=== PATIENT | female | born 1995 | race Caucasian/White ===

== ENCOUNTER 2021-10-23 13:01 | Emergency (ER) | payer BC, SELFPAY ==
[2021-10-23] VITALS (17 sets, daily range): BP systolic 109–117; BP diastolic 61–67; PULSE 70–87; RESP 16; TEMP 36.6; O2SAT 95–100
--- NOTE | 2021-10-23 13:15 | DI.CT_ITS ---
Exam(s) CT HEAD CERVICAL SPINE WO EXAM: CT HEAD CERVICAL SPINE WO COMPARISON: No exams were available for comparison FINDINGS: CT examination of the cervical spine was performed without contrast administration. There is no evidence of acute cervical spine fracture or dislocation. Intervertebral disc spaces are well maintained. Tracheolaryngeal structures appear intact. No cervical mass or adenopathy. Noncontrast cranial CT was performed. Ventricular system is normal in appearance. No evidence of acute intracranial hemorrhage, mass effect, or midline shift. No calvarial fracture. The orbital and temporal bone structures appear intact. Visualized mastoid air cells and paranasal sinuses appear clear. IMPRESSION: No evidence of acute cervical spine injury. No evidence of acute intracranial injury. RADIATION DOSE DELIVERED: 1,422.56mGy.cm Total DLP 1,422.56mGy.cm Total DLP !Error CTDIvol DATA REPOSITORY: All CT scans at this facility are submitted to the National Radiology Data Registry (NRDR) Dose Index Registry (DIR) with the [employer] ([employer]). RADIATION OPTIMIZATION: All CT scans at this facility use at least one of these dose optimization te chniques: automated exposure control; mA and/or kV adjustment per patient size (includes targeted exa ms where dose is matched to clinical indication); or iterative reconstruction.
--- NOTE | 2021-10-23 13:30 | DI.CT_ITS ---
Exam(s) CT THORACIC SPINE WO EXAM: CT THORACIC SPINE WO CLINICAL HISTORY: trauma mid thorax pain TECHNIQUE: COMPARISON: No exams were available for comparison FINDINGS: CT examination of the thoracic spine was performed utilizing multi slice acquisition and multiplanar reconstruction. The paraspinal soft tissues appear intact. There is no evidence of acute fracture o r dislocation. The intervertebral disc spaces are well maintained. IMPRESSION: No evidence of acute thoracic spine fracture. RADIATION DOSE DELIVERED: 569.18mGy.cm Total DLP !Error CTDIvol RADIATION OPTIMIZATION: All CT scans at this facility use at least one of these dose optimization te chniques: automated exposure control; mA and/or kV adjustment per patient size (includes targeted exa ms where dose is matched to clinical indication); or iterative reconstruction.
[2021-10-23] MEDS: HYDROmorphone 2 MG/ML VIAL 0.5 MG IVP ×2 (13:47→14:26)
[2021-10-23] MEDS: Ondansetron 4 MG/2 ML VIAL IVP (13:47)
--- NOTE | 2021-10-23 14:35 | NUR.NOTE ---
Nursing Note: [place] wallet with her cards, miscellaneous, was given to Gualberto in the waiting room so that he can finish her registration. He will hold the wallet until she is discharged. nidia Hammonds
[2021-10-23 14:44] LABS: Bilirubin Negative (Negative); Blood Trace-intact (Negative); Clarity Clear (Clear); Glucose Negative (Negative); Ketones Negative (Negative); Leukocyte Esterase Negative (Negative); Nitrite Negative (Negative); Specific Gravity 1.015 (1.005-1.025); Urobilinogen 0.2 EU/dL (Up TO 0.2); pH 7.5 (5-8)
[2021-10-23 14:54] LABS: Bacteria Negative HPF (Negative); C & S Indicated? No; Casts Negative LPF (Negative); Crystals Negative HPF (Negative); Epithelial Cells Few HPF (Negative); Mucus Negative (Negative); RBC 0-2 HPF (0-2); WBC Negative HPF (0-5)
--- NOTE | 2021-10-23 15:36 | W.ED.GENAD ---
Discharge Plan Disposition Patient Disposition: HOME Condition: Stable Discharge Details Clinical Impression: Concussion, Dog bite, Acute cervical myofascial strain, Contusion of back wall of thorax Primary Care Provider: Unknown,Unknown ED Provider: Kuldip Harley [place] Meds and New Rx's Prescriptions: New amoxicillin-pot clavulanate 875-125 mg tablet 1 tab PO BID Qty: 10 0RF ibuprofen [IBU] 600 mg tablet 600 mg PO QID PRN (Reason: pain) Qty: 20 0RF fluconazole [Diflucan] 150 mg tablet 150 mg PO ONCE Qty: 1 0RF Rx Instructions: as a single dose Continued lamotrigine 200 mg tablet 200 mg PO BID 0RF Label Comments: TAKE 1 TABLET BY MOUTH TWICE A DAY cimetidine 400 mg tablet 400 mg PO DAILY 0RF sertraline 100 mg tablet 100 mg PO DAILY 0RF Label Comments: TAKE 1 TABLET BY MOUTH IN THE MORNING pantoprazole 40 mg tablet,delayed release (DR/EC) 40 mg PO DAILY 0RF Label Comments: TAKE 1 TABLET BY MOUTH EVERY DAY Discharge Instructions Instructions: Cervical Strain (ED), Animal Bite (ED), Concussion (ED), Contusion in Adults (ED) Additional Instructions: If you have any significant worsening of symptoms such as focal neurological deficits right arm weakness, numbness tingling, inability to walk, confusion, or altered mental status you should return to the emergency department immediately. Otherwise it is very important that you stay well-hydrated, get plenty of both physical and mental rest and feel free to take the prescribed ibuprofen or acetaminophen as needed for discomfort. If you do not have any improvement over the next week please follow-up with your primary care provider for reassessment. Stand Alone Forms: Work Release Discharge Data Discharge Date/Time-TO BE ENTERED AT DEPARTURE: 10/23/21 17:07 Medical Decision Making <Jorge Vincent NP - Last Filed: 10/25/21 15:20> Patient presenting to the emergency department for chief complaint of ski injury with crossing her helmet and now having base of the skull pain, neck pain, and mid thoracic pain where she landed. Does state [place] Secondarily she was bitten by a dog yesterday but tetanus is up-to-date and she is a certified pharmacy technician. Physical exam shows no focal neurological deficits, no hematotympanum, no easley sign, patient does have diffuse nonfocal C-spine tenderness slightly increased to the upper C-spine, patient has mid thoracic spinal tenderness along with soft tissue tenderness. No bruising or ecchymosis is noted. Given mechanism of injury with cracked helmet, vomiting, and bony tenderness I do feel that advanced imaging is required. Secondarily I did visualize patient puncture wounds to left leg and arm which are concerning for possible infection so we will plan to treat with Augmentin. Review of CT imaging and speaking with radiologist about results show no acute findings. C-collar was removed and patient reassessed and tenderness seems more focal now to muscular tissue then to spinal tenderness. Suspect cervical strain so will give patient soft collar for comfort only, given vomiting along with head injury suspect concussion and discussed concussion precautions, and suspect additional contusions due to fall. Close monitoring of symptoms along with return and follow-up precautions were discussed with patient. After discussion of diagnosis and plan of care patient has no further needs, questions, or concerns and states clear understanding to return to the emergency department for any worsening symptoms. 1600-when attempting to discharge patient patient began getting very shaky and lightheaded with sitting up. She did state feeling somewhat altered. Patient does state significant history of anxiety and panic attacks. Patient is able to move all extremities, has 5/5 strength, tremors seem to be intermittent and while at rest but as soon as intentional action occurs tremor goes away. We will plan for further observation of patient and NS. Suspect more anxiety related effects of injury and some continued concussive effects. Plan on sign out patient for reassessment after fluids. <BARBARA Simons - Last Filed: 10/23/21 17:09> Patient presenting to the emergency department for chief complaint of ski injury with crossing her helmet and now having base of the skull pain, neck pain, and mid thoracic pain where she landed. Does state [place]. Secondarily she was bitten by a dog yesterday but tetanus is up-to-date and she is a certified pharmacy technician. Physical exam shows no focal neurological deficits, no hematotympanum, no easley sign, patient does have diffuse nonfocal C-spine tenderness slightly increased to the upper C-spine, patient has mid thoracic spinal tenderness along with soft tissue tenderness. No bruising or ecchymosis is noted. Given mechanism of injury with cracked helmet, vomiting, and bony tenderness I do feel that advanced imaging is required. Secondarily I did visualize patient puncture wounds to left leg and arm which are concerning for possible infection so we will plan to treat with Augmentin. Review of CT imaging and speaking with radiologist about results show no acute findings. C-collar was removed and patient reassessed and tenderness seems more focal now to muscular tissue then to spinal tenderness. Suspect cervical strain so will give patient soft collar for comfort only, given vomiting along with head injury suspect concussion and discussed concussion precautions, and suspect additional contusions due to fall. Close monitoring of symptoms along with return and follow-up precautions were discussed with patient. After discussion of diagnosis and plan of care patient has no further needs, questions, or concerns and states clear understanding to return to the emergency department for any worsening symptoms. 1600-when attempting to discharge patient patient began getting very shaky and lightheaded with sitting up. She did state feeling somewhat altered. Patient does state significant history of anxiety and panic attacks. Patient is able to move all extremities, has 5/5 strength, tremors seem to be intermittent and while at rest but as soon as intentional action occurs tremor goes away. We will plan for further observation of patient and NS. Suspect more anxiety related effects of injury and some continued concussive effects. Plan on sign out patient for reassessment after fluids. [id number] I assumed care of this 26-year-old female from my colleague MIRTA Vincent, please see his initial HPI and examination. In short, patient had a snowboarding accident, negative work-up thus far. Plan was patient was ready for discharge but then felt shaky and anxious and the new plan is now for additional observation in the ER and IV fluid. Patient received 1 L IV fluid. She was able to tolerate p.o. intake without difficulty and she also was able to ambulate without difficulty. Upon my reevaluation patient tells me that she feels much improved to the episode that she had earlier and feels comfortable discharge. She appears well, nontoxic, not anxious, no tremors noted. Patient is in the exam room 1 with her significant other, they are both comfortable discharge home at this time. She lives in [place] and was encouraged to return to our ER for new or worsening symptoms or any ER along her travels. Patient tells me that she already has a neurologist established at home because she has epilepsy and I encouraged her to contact her neurology team on Monday to discuss her ER visit, head injury, need for outpatient reevaluation. This documentation was generated using [employer] system, please disregard any oddities of phrase or misspellings. HPI <Jorge Vincent NP - Last Filed: 10/25/21 15:20> General Date/Time Provider Initiated Documentation: 10/23/21 13:05. Related Data Home Medications Medication Instructions Recorded Confirmed amoxicillin 875 mg-potassium 1 tab PO BID #10 tab 10/23/21 clavulanate 125 mg tablet cimetidine 400 mg tablet 400 mg PO DAILY 10/23/21 10/23/21 fluconazole 150 mg tablet 150 mg PO ONCE #1 tab 10/23/21 (Diflucan) ibuprofen 600 mg tablet (IBU) 600 mg PO QID PRN #20 tab 10/23/21 lamotrigine 200 mg tablet 200 mg PO BID 10/23/21 10/23/21 pantoprazole 40 mg tablet,delayed 40 mg PO DAILY 10/23/21 10/23/21 release sertraline 100 mg tablet 100 mg PO DAILY 10/23/21 10/23/21 Previous Rx's Medication Instructions Recorded amoxicillin 875 mg-potassium 1 tab PO BID #10 tab 10/23/21 clavulanate 125 mg tablet fluconazole 150 mg tablet 150 mg PO ONCE #1 tab 10/23/21 (Diflucan) ibuprofen 600 mg tablet (IBU) 600 mg PO QID PRN #20 tab 10/23/21 Allergies Allergy/AdvReac Type Severity Reaction Status Date / Time azithromycin Allergy Unverified 10/23/21 13:17 seasonal Allergy Uncoded 10/23/21 13:18 General Stated Complaint: Trauma BRI: 2 Review of Systems <Jorge Vincent NP - Last Filed: 10/25/21 15:20> Constitutional Constitutional: Denies daytime sleepiness and Reports headache(s) Eyes Eyes: Denies change in vision ENT Ears, Nose, Mouth, and Throat: Denies dizziness, Reports headache(s), Denies epistaxis and Reports neck pain Cardiovascular Cardiovascular: Denies chest pain, Denies syncope and Denies dyspnea Respiratory Respiratory: Denies pain on inspiration and Denies dyspnea Gastrointestinal Gastrointestinal: Denies abdominal pain, Denies nausea and Denies vomiting Genitourinary Genitourinary: Denies urinary incontinence Musculoskeletal Musculoskeletal: Reports as per HPI, Reports back pain and Reports neck pain Neurologic Neurologic: Denies confusion, Denies dizziness, Denies syncope, Reports headache(s), Denies localized weakness, Denies memory loss, Denies convulsions and Denies sensory deficit Psychiatric Psychiatric: Denies confusion and Denies memory loss PFS <Jorge Vincent NP - Last Filed: 10/25/21 15:20> All Active Problems Concussion (Acute) Dog bite (Acute) Acute cervical myofascial strain (Acute) Contusion of back wall of thorax (Acute) Social History Smoking/Tobacco Use Status: Never Smoking risk assessment performed?: Yes Substance use type: does not use Exam <Jorge Vincent NP - Last Filed: 10/25/21 15:20> Const General: cooperative, healthy appearing, no acute distress and well groomed Orientation: alert, awake and oriented x3 HENMT Head: normal to inspection Ears: hearing grossly normal bilaterally and TM's normal bilaterally Mouth: oral mucosae normal and moist mucous membranes Throat: posterior oropharynx normal Eyes Visual Zepeda: normal visual zepeda by confrontation Alignment and Position: alignment normal Periorbital: periorbital findings normal Eyelids: eyelids normal Sclera: sclerae normal Cornea: corneas normal Pupils: PERRL EOM: EOM intact bilaterally Neck Neck: normal visual inspection Resp Effort & Inspection: normal respiratory effort and able to speak in complete sentences Auscultation: clear to auscultation bilaterally Cardio Rate: regular rate Rhythm: regular rhythm Heart Sounds: S1 normal and S2 normal Back/Spine/Pelvis Cervical Spine: normal cervical lordosis, cervical muscular tenderness, cervical spinal tenderness (upper C-spine) and No step off deformity Thoracic/Lumbar Spine: thoracic spinal tenderness Pelvis: no pain with anterior-posterior compression and no pain with lateral compression Neuro General: patient alert, patient awake, patient oriented x3, gait normal, tone normal, moves all extremities, CN's II-XI intact bilaterally and not confused Cognition: normal cognition Speech: speech normal Motor: muscle tone normal throughout and strength 5/5 throughout Sensory Exam: no sensory deficits noted Coordination: Does not sway with eyes open Extrem General: normal exam except as noted Left upper extremity: elbow/forearm Details: penetrating wound (dog bite forearm) Left lower extremity: hip/thigh Details: penetrating wound (dog bite proximal thigh) and other Course <Jorge Vincent NP - Last Filed: 10/25/21 15:20> Vital Signs Vital signs: Vital Signs Temperature 36.6 C 10/23/21 13:07 Pulse 74 10/23/21 13:07 Respiratory Rate 16 10/23/21 13:07 Blood Pressure 117/67 10/23/21 13:07 Pulse Oximetry 100 10/23/21 13:07 Temperature 36.6 C 10/23/21 13:07 Pulse 74 10/23/21 13:07 Respiratory Rate 16 10/23/21 13:07 Respiratory Effort 10/23/21 13:07 Blood Pressure 117/67 10/23/21 13:07 Blood Pressure Position Supine 10/23/21 13:07 Pulse Oximetry 100 10/23/21 13:07 Oxygen Delivery Method Room Air 10/23/21 13:07 Oxygen Flow Rate 0 10/23/21 13:07 Pain Level 0 10/23/21 13:07 Lab/Test Results Lab/Test Results: Laboratory Tests Range/Units 10/23/21 13:59 Urine Color (Yellow) Yellow Urine Clarity (Clear) Clear Urine pH (5-8) 7.5 Ur Specific [place] (1.005-1.025) 1.015 Urine Protein (Negative) mg/dL Negative Urine Ketones (Negative) mg/dL Negative Urine Blood (Negative) Trace-intact H Urine Nitrite (Negative) Negative Urine Bilirubin (Negative) Negative Urine Urobilinogen (Up TO 0.2) EU/dL 0.2 Ur Leukocyte Esterase (Negative) Negative Urine RBC (0-2) HPF 0-2 Urine WBC (0-5) HPF Negative Ur Epithelial Cells (Negative) HPF Few Urine Crystals (Negative) HPF Negative Urine Bacteria (Negative) HPF Negative Urine Casts (Negative) LPF Negative Urine Mucus (Negative) Negative Ur Culture Indicated? No Urine Glucose (Negative) mg/dL Negative Sign Out <Jorge Vincent NP - Last Filed: 10/25/21 15:20> Sign Out Data: Sign Out Comment: Patient signed out pending reassessment after 1 L IV fluids and further rest. Last updated by Jorge Vincent NP at 10/23/21 16:16 PAWSS <Jorge Vincent NP - Last Filed: 10/25/21 15:20> Have you Been Recently Intoxicated or Drunk Within the Last 30 days?: Yes Have you Ever Experienced Previous Episodes of Alcohol Withdrawal?: Yes Have you ever Experienced Withdrawal Seizures?: No Have you ever Experienced Delirium Tremens(DT)s?: No Have you ever undergone Alcohol Rehabilitation Treatment (i.e, inpt ot outpatient treatment programs)?: No Have you ever Experienced Blackouts?: No Have you ever Combined Alcohol with other Downers within the last 90 days?: No Have you ever Combined Alcohol with any other Substance of Abuse during the last 90 days?: No Positive Blood Alcohol level on Presentation? [PCS.BAL]: No Evidence of Increased Autonomic Activity (i.e. HR>120, tremor, sweating, agitation, nausea)?: No Result: 2 <BARBARA Simons - Last Filed: 10/23/21 17:09> Result: 2
[2021-10-23] MEDS: Normal Saline 1,000 ML 1000 ML IV (16:00)
== END 2021-10-23 17:07 | disposition home or self-care (01) ==
PROVIDERS: Nurse Practitioner Family; Emergency Provider Physician Assistant
DX: S06.0X0A Concussion without loss of consciousness, initial encounter (principal); S16.1XXA Strain of muscle, fascia and tendon at neck level, initial encounter; S20.224A Contusion of middle back wall of thorax, initial encounter; R42 Dizziness and giddiness; V00.311A Fall from snowboard, initial encounter; S51.852A Open bite of left forearm, initial encounter; S71.152A Open bite, left thigh, initial encounter; W54.0XXA Bitten by dog, initial encounter
CPT/HCPCS: 81025; 96361; 96374; 96375; 96376; 99284; 70450; 72125; 72128; 81003; 81015; J2405